=== PATIENT | female | born 1995 | race Hispanic/Latino ===

== ENCOUNTER 2024-03-15 16:50 | Emergency (ER) | payer OTHER ==
[~2024-03-15] VITALS: Ht 157.5 cm; Wt 70.8 kg
[2024-03-15 17:00] VITALS: PULSE 76; RESP 16; TEMP 98.2
[2024-03-15 18:47] VITALS: BP 136/78; PULSE 73; RESP 18; TEMP 98.6; O2SAT 98
== END 2024-03-15 18:47 | disposition home or self-care (01) ==
LOC: FSED 16:55
DX: N93.9 Abnormal uterine and vaginal bleeding, unspecified (principal); N83.201 Unspecified ovarian cyst, right side
CPT/HCPCS: 76830; 76856; 81003; 81025; 99283